=== PATIENT | female | born 1980 | race Caucasian/White ===

== ENCOUNTER → 2020-05-06 | Outpatient (CLI) | payer BC | END | disposition home or self-care (01) | LOC: LAB 13:35 | PROVIDERS: ATTEND Internal Medicine Gastroenterology | DX: Z01.818 Encounter for other preprocedural examination (principal); Z11.59 Encounter for screening for other viral diseases; R14.0 Abdominal distension (gaseous) | CPT/HCPCS: U0003-CS ==

== ENCOUNTER → 2020-05-11 | Day surgery (SDC) | payer BC ==
[~2020-05-11] MED LIST: IV RINGERS,LACTATED 1000ML 1,000 ML IV SCH; LIDOCAINE 2% PF 5 ML VIAL. ONE; PROPOFOL 10 MG/ML (20ML) VIAL. IV ONE
[2020-05-11 11:20] VITALS: BP 114/71
--- NOTE | 2020-05-11 12:24 | OP ---
DATE OF SURGERY: 05/11/2020 REQUESTING PHYSICIAN: Dr. Jeison Griffith. REASON FOR PROCEDURE: Bloating. HISTORY OF PRESENT ILLNESS: This is a 39-year-old female who presents for bloating. She has a history of small intestinal bacterial overgrowth that has been treated with rifaximin. She continues to have symptoms. She is to undergo upper endoscopy for further evaluation. The risks and benefits including bleeding, perforation, non-diagnosis and sedation were explained and she has agreed to proceed. MEDICATIONS: Propofol per anesthesia. DESCRIPTION OF PROCEDURE: The upper Olympus endoscope was introduced from the mouth and passed through upper, middle, and lower esophagus. Esophagitis was noted at 35 cm from the incisors. The scope was then passed into the fundus, body and antrum of the stomach. Retroflexion was performed. The fundus was examined and no hiatal hernia was noted. The scope was then withdrawn and passed through the pylorus into the duodenal bulb and first and second portion of the duodenum. There was no mucosal abnormality. Cold biopsy forceps were taken for histology in the second portion of the duodenum and at the duodenal bulb. The scope was withdrawn and cold biopsy forceps were taken in the gastric antrum and body. The scope was then withdrawn to 35 cm from the incisors in the distal esophagus. Cold biopsy forceps were taken for histology. The scope was completely withdrawn. The patient suffered no complication. FINDINGS: 1. Esophagitis at 35 cm from the incisors, status post biopsy. 2. Normal stomach, status post biopsy of the antrum and body. 3. Normal small bowel, status post biopsy of the duodenal bulb and second portion of the duodenum. PLAN: 1. Await biopsy results. 2. Discharge home. 3. She has a followup phone visit with me on 05/21/2020 at 03:15 p.m. 4. She will have an abdominal sonogram and PIPIDA scheduled for Monday of this week. Thank you for allowing me to participate in the care of this patient. TOIR WEBSTER MD DR: BRENDA/dung JOB#: [id number] / [id number] JEISON Jennings MD
--- NOTE | 2020-05-12 17:06 | PATHOLOGY ---
[facility] Accession Number: [id number] . 01 Material submitted: . PART A: small bowel - SMALL BOWEL BIOPSY PART B: stomach - GASTRIC ANTRUM AND BODY BIOPSY. Modifiers: body PART C: esophagus - DISTAL ESOPHAGUS BIOPSY. Modifiers: distal . 01 Clinical history: . Bloating . 02 Diagnosis: A. Small bowel biopsies: - No significant pathologic abnormalities. . B. Gastric biopsies, gastric body and gastric antrum: - Chronic gastritis, mild. . C. Esophageal biopsies, distal esophagus: - Reflux esophagitis. (JPM:herberth 05/12/2020) [facility] 05/12/2020 09[address] [facility] . 02 Comment: Sections of the small bowel biopsy reveal segments of duodenal and small intestine mucosa. Where best oriented, mucosal villi show no sprue-like changes or significant inflammatory changes. . Sections of the gastric biopsy reveal segments of gastric body and gastric antral/body transition mucosa. The gastric body mucosa shows congestion and slight superficial chronic inflammation. The gastric antral/body transition mucosa shows congestion and patchy mild chronic inflammation. A properly controlled immunoperoxidase for Helicobacter is negative for Helicobacter organisms. . Sections of the distal esophageal biopsy reveal two segments of hyperplastic squamous esophageal mucosa and two segments of columnar lined mucosa of gastric type. The hyperplastic squamous esophageal mucosa contains a few scattered intraepithelial eosinophils consistent with reflux esophagitis. There is no evidence of an eosinophilic esophagitis. The segments of columnar lined mucosa of gastric type show mild chronic inflammation. There are a few glands which contain several goblet cells. However, there is no extensive intestinal metaplasia with goblet cells diagnostic of Draper's change. There is no dysplasia or evidence of malignancy. (JPM:herberth 05/12/2020) . Special stain performed: Immunoperoxidase for Helicobacter on B1. . 02 Electronically signed: . Cosmo Musa MD, Pathologist NPI- [id number] . 01 Gross description: . A. The specimen is received in formalin, labeled "Simeon, Patricia, small bowel BX" and consists of 4 fragments of pink-velasquez tissue measuring 0.9 x 0.7 x 0.3 cm aggregate which are entirely submitted in A1. . B. The specimen is received in formalin, labeled "Simeon, Patricia, gastric antrum and body BX" and consists of 4 fragments of pink-velasquez tissue measuring 1.1 x 0.6 x 0.3 cm in aggregate which are entirely submitted in B1. . C. The specimen is received in formalin, labeled "Simeon, Patricia, distal esophagus BX" and consists of 3 fragments of pink-velasquez tissue measuring between 0.3 x 0.2 cm and 0.4 x 0.3 cm which are entirely submitted in C1. (SDY; 05/11/2020) SYU/SYU 05/11/2020 1626 Local . 02 Pathologist provided ICD-10: K29.50, K21.0 . 02 CPT . 683953, 369537, 169984, [id number] Specimen Comment: A courtesy copy of this report has been sent to [phone], [phone] Specimen Comment: [id number] Specimen Comment: Report sent to / DR JIMENEZ Performed at: 01 [facility] [address], [place] [id number] MD Hernando mOer MD Phone: [phone] Performed at: 02 [facility] [address] [place], [place] [id number] MD Cosmo Musa MD Phone: [phone]
== END ==
LOC: SURG 10:00 → EDUNIT# 12:00
PROVIDERS: ATTEND Internal Medicine Gastroenterology
DX: R14.0 Abdominal distension (gaseous) (principal); K29.50 Unspecified chronic gastritis without bleeding; K21.0 Gastro-esophageal reflux disease with esophagitis; F15.90 Other stimulant use, unspecified, uncomplicated
CPT/HCPCS: 43239; 88305; 88342; J2704